=== PATIENT | male | born 1960 | race Caucasian/White ===

== ENCOUNTER → 2016-07-28 | Outpatient (CLI) | payer OTHER ==
[~2016-07-28] MED LIST: ACET-703 PO; ATOR10TA15 PO; COLA100C3 PO; DULE100A INH; FLUT50SP EACH NARE; LEVE500 PO; LISI20TA PO; METF500T PO; MIRA33504 PO; OXYC-392 PO; SENO8.6T5 PO; TRAM50TA PO
== END ==
LOC: HCAV 07:58
PROVIDERS: ATTEND Family Medicine
DX: M79.629 Pain in unspecified upper arm (principal)